=== PATIENT | female | born 1985 | race Caucasian/White ===

== ENCOUNTER 2019-02-24 15:13 | Inpatient (IN) | payer OTHER ==
[~2019-02-24] VITALS: Ht 162.6 cm; Wt 84.8 kg
[2019-03-17] MEDS ORDERED: PRENATAL TABLE1 EAC1 PO (08:36)
[2019-03-17] MEDS ORDERED: ZANTAC300 MG PO (08:37)
[2019-03-17] MEDS ORDERED: IRON325 MG PO (08:37)
== END 2019-03-19 13:06 | DRG 807 ==
LOC: LDR 03-17 06:48 → OB/GYN 03-18 00:01
PROVIDERS: ADMIT Obstetrics & Gynecology
PROC: 10E0XZZ Delivery of Products of Conception, External Approach (ICD-10-PCS; principal; 2019-03-17)
PROC: 4A0HXFZ Measurement of Products of Conception, Cardiac Rhythm, External Approach (ICD-10-PCS; 2019-03-17)
DX: O70.0 First degree perineal laceration during delivery (principal); Z37.0 Single live birth; Z3A.39 39 weeks gestation of pregnancy

== ENCOUNTER 2025-06-20 12:53 | Emergency (ER) | payer OTHER ==
[~2025-06-20] VITALS: Ht 162.6 cm; Wt 81.2 kg
[~2025-06-20 12:53] MED LIST: IRON325 MG PO; PRENATAL TABLE1 EAC1 PO; ZANTAC300 MG PO
[2025-06-20] MEDS ORDERED: 0.9 % SODIUM CHLORIDE 1,000 ML IV STA (13:52)
[2025-06-20] MEDS ORDERED: MORPHINE SULFATE 4 MG/ML VIAL IV ONE (14:00)
[2025-06-20] MEDS ORDERED: TAMSULOSIN HCL 0.4 MG CAP PO ONE (14:00)
[2025-06-20 14:37] LABS: URINE APPEARANCE Clear; URINE BILIRRUBIN Negative (NEGATIVE); URINE BLOOD Trace; URINE COLOR Yellow; URINE GLUCOSE Negative (NEGATIVE); URINE KETONE Negative (NEGATIVE); URINE LEUKOCYTE Negative; URINE NITRATE Negative; URINE PROTEIN Negative (NEGATIVE); URINE UROBILINOGEN 0.2 E.U./dl
[2025-06-20 14:41] LABS: URINE BACTERIA 1014.9 uL (0.0-1933); URINE EPITHELIAL CELLS 23.5 uL (0.0-38.8); URINE RBC 9.3 uL (0.0-20.8)
[2025-06-20 14:51] LABS: BUN CREA RATIO 16.0 (7.0-25.0); CREATININE SERUM 0.79 mg/dL (0.55-1.02); GFR 81.02; GLUCOSE FASTING 116.0 mg/dL (65-100); OSMOLALITY SERUM 282.0 MOSM/KG (275-295)
[2025-06-20 15:06] LABS: BASO % 0.5 % (0.1-1.2); EOS # 0.44 (0.04-0.54); EOS % 5.8 % (0.7-7.0); LYMPH # 2.27 (1.18-3.74); LYMPH % 29.8 % (19.3-53.1); MEAN PLATELET VOLUME 9.60 fl (9.4-12.4); MONO # 0.53 (0.24-0.82); MONO % 6.9 % (4.7-12.5); NEUT # 4.32 (1.56-6.13); NEUT % 56.6 % (34.0-71.1); RED CELL DISTRIBUTION WIDTH 11.9 % (11.6-14.4)
[2025-06-20 15:08] LABS: URINE CAST 0.14 uL (0.0-1.40); URINE WBC 1.3 uL (0.0-23.2)
[2025-06-20] MEDS ORDERED: KETOROLAC TROMETHAMINE 30 MG VIAL IV ONE (17:15)
[2025-06-20] MEDS ORDERED: DICLOFENAC SODI75 MG PO (17:42)
== END 2025-06-20 18:02 | disposition home or self-care (01) ==
LOC: ER 12:53
PROVIDERS: Emergency Medicine
DX: R10.31 Right lower quadrant pain (principal)

== ENCOUNTER 2025-09-12 10:00 | Day surgery (SDC) | payer OTHER ==
[2025-09-08 08:28] LABS: BASO % 0.3 % (0.1-1.2); EOS # 0.03 (0.04-0.54); EOS % 0.3 % (0.7-7.0); LYMPH # 1.40 (1.18-3.74); LYMPH % 12.5 % (19.3-53.1); MEAN PLATELET VOLUME 9.00 fl (9.4-12.4); MONO # 0.59 (0.24-0.82); MONO % 5.3 % (4.7-12.5); NEUT # 9.05 (1.56-6.13); NEUT % 80.4 % (34.0-71.1); RED CELL DISTRIBUTION WIDTH 12.2 % (11.6-14.4)
[2025-09-08 08:33] LABS: URINE APPEARANCE Clear; URINE BILIRRUBIN Negative (NEGATIVE); URINE BLOOD Moderate; URINE COLOR Yellow; URINE GLUCOSE Negative (NEGATIVE); URINE KETONE Trace (NEGATIVE); URINE LEUKOCYTE Negative; URINE NITRATE Negative; URINE PROTEIN Trace (NEGATIVE); URINE UROBILINOGEN 0.2 E.U./dl
[2025-09-08 08:34] LABS: URINE BACTERIA 69.5 uL (0.0-1933); URINE EPITHELIAL CELLS 24.4 uL (0.0-38.8); URINE RBC 35.0 uL (0.0-20.8); URINE WBC 6.6 uL (0.0-23.2)
[2025-09-08 08:50] LABS: INR < 0.93
[2025-09-08 09:04] LABS: URINE CAST 0.14 uL (0.0-1.40)
[2025-09-08 09:06] VITALS: BP 125/80
[2025-09-08 09:14] LABS: ALT/SGPT 30.0 U/L (12-78); AST/SGOT 22.0 U/L (15-37); BILIRUBIN TOTAL 0.27 mg/dL (0.3-1.2); BUN CREA RATIO 19.0 (7.0-25.0); CREATININE SERUM 0.78 mg/dL (0.55-1.02); GFR 82.22; GLOBULINA 3.3 G/DL (2.4-3.5); GLUCOSE FASTING 101.0 mg/dL (65-100); OSMOLALITY SERUM 290.0 MOSM/KG (275-295)
[~2025-09-12] VITALS: Ht 162.6 cm; Wt 81.6 kg
[~2025-09-12 10:00] MED LIST changes: +DICLOFENAC SODI75 MG PO; +DICY20TA; +PRILOSEC OTC20 MG PO
[2025-09-12] MEDS ORDERED: CEFAZOLIN SODIUM 1,000 MG VIAL ONE (10:36)
[2025-09-12] MEDS ORDERED: SUGAMMADEX SODIUM 200 MG/2 ML VIAL IV ONE (13:55)
== END 2025-09-12 17:35 | disposition home or self-care (01) ==
LOC: CIR.AMB 10:00
PROVIDERS: ATTEND Surgery
DX: K81.1 Chronic cholecystitis (principal)